=== PATIENT | male | born 1955 ===

== ENCOUNTER 2018-06-03 07:50 | Day surgery (SDC) | payer BC ==
[~2018-06-03 07:50] MED LIST: Acetaminophen TAB* 325 MG PO PRN; Buffered Lidocaine 0.9% SYRIN* 5 ML/SYR SYRINGE INTRADERM ONE
[2018-06-03] MEDS ORDERED: Midazolam* 1 MG/ML 2 ML VIAL (2 MG) ONE (09:25)
[2018-06-03] MEDS ORDERED: fentaNYL* 50 MCG/ML 2 ML VIAL (100 MCG VIAL) ONE (09:25)
[2018-06-03 10:22] VITALS: BP 116/77
--- NOTE | 2018-06-03 11:06 | OP ---
DATE OF OPERATION/DATE OF DICTATION: 06/03/2018 - [facility] DATE OF : 1955. SURGEON: Dr. Deepak Avalos. FRONT END UI DEVELOPER: None. ANESTHESIA: Topical with intravenous sedation. PRE-OP DIAGNOSIS: Cataract, right eye. POST-OP DIAGNOSIS: Cataract, right eye. OPERATIVE PROCEDURE: Phacoemulsification and cataract extraction with posterior chamber intraocular lens implant, right eye. COMPLICATIONS: None. BLOOD LOSS: None. DESCRIPTION OF PROCEDURE: The patient was brought to the operating room and received a small amount of intravenous sedation. A drop of Tetracaine was placed in his right eye. He was prepped and draped in the usual sterile fashion for ophthalmic surgery and attention was directed to the right eye where a speculum was placed. A paracentesis was created at the 11 o'clock position and 0.1 cc of 1 percent preservative-free Lidocaine was injected into the anterior chamber followed by DisCoVisc. The eye was digitally stabilized while a 2.75 mm keratome was used to create a triplanar clear corneal incision at the 9 o'clock position. A continuous curvilinear capsulorrhexis was created with a cystotome and Utrata forceps. BSS on a cannula was used to hydrodissect the lens from the capsule. Phacoemulsification was performed in a divide-and- conquer technique to create four fragments which were removed. Residual cortical material was removed with irrigation and aspiration. DisCoVisc was used to inflate the capsular bag and an AUOOTO 21.0 diopter lens was folded and inserted into the capsular bag. DisCoVisc was removed using irrigation and aspiration. BSS on a cannula was used to hydrate the corneal stroma and seal the wound. At the end of the case the pupil was round and the lens was centered. The eye was of normal pressure and the wound was water tight. The speculum was removed and topical Maxitrol ointment was placed on the surface of the eye. The eye was closed, patched and shielded and the patient was sent to the recovery room in stable condition with post operative instructions and follow-up appointment given. [id number] #: [id number] MTDD
[2018-06-03] MEDS ORDERED: Tropicamide 1% OPTH.SOL* BTL ONE (11:13)
[2018-06-03] MEDS ORDERED: Cyclopentolate 1% OPTH.SOL* 2 ML BTL ONE (11:13)
[2018-06-03] MEDS ORDERED: Neomycin/Polymy/Dex OPHTH.OIN* 3.5 GM ONE (11:13)
[2018-06-03] MEDS ORDERED: Tetracaine 0.5% OPTH.SOL 4 ML* 1 DROP BTL ONE (11:13)
[2018-06-03] MEDS ORDERED: Ketorolac 0.5% OPHTH (NF) 0.5 % 5 ML BTL ONE (11:13)
[2018-06-03] MEDS ORDERED: Phenylephrine 2.5% OPTH.SOL* 2 ML BTL ONE (11:13)
[2018-06-03] MEDS ORDERED: Lidocaine 1%* 5 ML VIAL ONE (11:13)
== END 2018-06-03 10:31 | disposition home or self-care (01) ==
LOC: OREAST 07:50
PROVIDERS: ATTEND Ophthalmology
DX: Z01.818 Encounter for other preprocedural examination (principal); H25.11 Age-related nuclear cataract, right eye
CPT/HCPCS: A9270-GY; J2250; J3010; V2632

== ENCOUNTER 2018-06-10 09:16 | Day surgery (SDC) | payer BC ==
[2018-06-10] MEDS ORDERED: fentaNYL* 50 MCG/ML 2 ML VIAL (100 MCG VIAL) ONE (09:48)
[2018-06-10] MEDS ORDERED: Midazolam* 1 MG/ML 2 ML VIAL (2 MG) ONE (09:48)
[2018-06-10 11:25] VITALS: BP 128/74
--- NOTE | 2018-06-10 11:53 | OP ---
DATE OF OPERATION/DATE OF DICTATION: 06/10/2018 - [facility] DATE OF : 1955. SURGEON: Dr. Deepak Avalos. WEB PAGE DEVELOPER: None. ANESTHESIA: Topical with intravenous sedation. PRE-OP DIAGNOSIS: Cataract, left eye. POST-OP DIAGNOSIS: Cataract, left eye. OPERATIVE PROCEDURE: Phacoemulsification and cataract extraction with posterior chamber intraocular lens implant, left eye. COMPLICATIONS: None. BLOOD LOSS: None. DESCRIPTION OF PROCEDURE: The patient was brought to the operating room and received a small amount of intravenous sedation. A drop of Tetracaine was placed in his left eye. He was prepped and draped in the usual sterile fashion for ophthalmic surgery and attention was directed to the left eye where a speculum was placed. A paracentesis was created at the 5 o'clock position and 0.1 cc of 1 percent preservative-free Lidocaine was injected into the anterior chamber followed by DisCoVisc. The eye was digitally stabilized while a 2.75 mm keratome was used to create a triplanar clear corneal incision at the 3 o' clock position. A continuous curvilinear capsulorrhexis was created with a cystotome and Utrata forceps. BSS on a cannula was used to hydrodissect the lens from the capsule. Phacoemulsification was performed in a divide-and- conquer technique to create four fragments which were removed. Residual cortical material was removed with irrigation and aspiration. DisCoVisc was used to inflate the capsular bag and an AUOOTO 21.0 diopter lens was folded and inserted into the capsular bag. DisCoVisc was removed using irrigation and aspiration. BSS on a cannula was used to hydrate the corneal stroma and seal the wound. At the end of the case the pupil was round and the lens was centered. The eye was of normal pressure and the wound was water tight. The speculum was removed and topical Maxitrol ointment was placed on the surface of the eye. The eye was closed, patched and shielded and the patient was sent to the recovery room in stable condition with post operative instructions and follow-up appointment given. [id number] #: [id number] MTDD
[2018-06-10] MEDS ORDERED: Cyclopentolate 1% OPTH.SOL* 2 ML BTL ONE (15:02)
[2018-06-10] MEDS ORDERED: Ketorolac 0.5% OPHTH (NF) 0.5 % 5 ML BTL ONE (15:02)
[2018-06-10] MEDS ORDERED: Lidocaine 1%* 5 ML VIAL ONE (15:02)
[2018-06-10] MEDS ORDERED: Phenylephrine 2.5% OPTH.SOL* 2 ML BTL ONE (15:02)
[2018-06-10] MEDS ORDERED: Tropicamide 1% OPTH.SOL* BTL ONE (15:02)
[2018-06-10] MEDS ORDERED: Tetracaine 0.5% OPTH.SOL 4 ML* 1 DROP BTL ONE (15:02)
[2018-06-10] MEDS ORDERED: Neomycin/Polymy/Dex OPHTH.OIN* 3.5 GM ONE (15:02)
== END 2018-06-10 11:25 | disposition home or self-care (01) ==
LOC: OREAST 09:16
PROVIDERS: ATTEND Ophthalmology
DX: H25.12 Age-related nuclear cataract, left eye (principal); B18.2 Chronic viral hepatitis C
CPT/HCPCS: A9270-GY; J2250; J3010; V2632

== ENCOUNTER 2018-11-21 08:47 | Emergency (ER) | payer BC ==
[2018-11-21 09:04] VITALS: BP 168/96
--- NOTE | 2018-11-21 09:19 | UC ---
Cardiac HPI - HPI Summary HPI Summary: This patient is a 63-year-old male who presents to the urgent care with a chief complaint of having left-sided chest pain. He reports that yesterday he was working in his yard when he developed a heavy lifting and today he developed this left-sided chest pain. The pain is dull constant nonradiating he reports that he is 0.5 out of 10. The pain is only when he touches the area of the left side of the chest. He denies any nausea vomiting, diaphoresis, dizziness or palpitations. Patient reports that she has a history of dyslipidemia, and hypertension. Denies any diabetes. She also reports that his father restively younger than his age. - History of Current Complaint Chief Complaint: UCChestPain Stated Complaint: SHOULDER PAIN Time Seen by Provider: 11/21/18 08:54 Hx Obtained From: Patient Onset/Duration: Gradual Onset Timing: Constant Initial Severity: Mild Current Severity: Mild Pain Intensity: 1 - Allergy/Home Medications Allergies/Adverse Reactions: Allergies Allergy/AdvReac Type Severity Reaction Status Date / Time No Known Allergies Allergy Verified 11/21/18 09:01 Home Medications: Home Medications Aspirin TAB* [Aspirin 325 MG TAB*] 650 mg PO Q6H PRN 11/21/18 [History Confirmed 11/21/18] PMH/Surg Hx/FS Hx/Imm Hx Endocrine History: Dyslipidemia Cardiovascular History: Hypertension - Surgical History Surgical History: Yes Surgery Procedure, Year, and Place: COLONOSCOPY-5 YEARS AGO, lens implants - Family History Known Family History: Positive: Hypertension, Other - [place] - Social History Alcohol Use: Occasionally Substance Use Type: None Smoking Status (MU): Never Smoked Tobacco Have You Smoked in the Last Year: No Review of Systems All Other Systems Reviewed And Are Negative: Yes Constitutional: Positive: Negative Skin: Positive: Negative Eyes: Positive: Negative ENT: Positive: Negative Respiratory: Positive: Negative Cardiovascular: Positive: Negative Gastrointestinal: Positive: Negative Genitourinary: Positive: Negative Motor: Positive: Negative Neurovascular: Positive: Negative Musculoskeletal: Positive: Other: - chest pain Neurological: Positive: Negative Psychological: Positive: Negative Is Patient Immunocompromised?: No Physical Exam - Summary Physical Exam Summary: VITAL SIGNS: Reviewed. GENERAL: Patient is a well developed and nourished male who is sitting comfortable in the stretcher. Patient is not in any acute respiratory distress. HEAD AND FACE: Normocephalic and atraumatic. EYES: PERRLA, EOMI x 2, EARS: Hearing grossly intact. MOUTH: Oropharynx within normal limits. NECK: Supple, trachea is midline, no adenopathy, no JVD, no carotid bruit, no c- spine tenderness, neck with full ROM. CHEST: Symmetric, no tenderness at palpation LUNGS: CTA B/L. No wheezing or crackles. CVS: RRR, S1 and S2 present, no murmurs or gallops appreciated. ABDOMEN: Soft, NT, No distention. Normal BS. EXTREMITIES: FROM in all major joints, no edema, no cyanosis or clubbing. NEURO: Alert and oriented x 3. No acute neurological deficits. Speech is normal and follows commands. SKIN: Dry and warm Triage Information Reviewed: Yes Appearance: Well-Appearing, No Pain Distress, Well-Nourished Vital Signs: Initial Vital Signs Temp 98.7 F 11/21/18 08:54 Pulse 79 11/21/18 08:54 Resp 16 11/21/18 08:54 BP 168/96 11/21/18 08:54 Pulse Ox 100 11/21/18 08:54 Diagnostics - EKG Cardiac Rate: NL ST Segment: Normal Summary of EKG Findings: NSR at 72 BPM w/o ST elevations - Assessment/Plan Course Of Treatment: In the urgent care the EKG shows a sinus rhythm at [address] elevations. Has a Q-wave in 2, 3, and aVF. No old EKG for comparison. In the physical exam the patient has a reproducible chest pain on he wonders packed of the left side of the chest. Chest x-ray impression: No acute pathology. In the urgent care course the patient was given Toradol for the pain. I believe that the patient has a muscular skeletal pain and not on acute coronary syndrome. The heart score is equal to 1 therefore no suspicion for acute coronary syndrome. However the patient was given instructions to return to the urgent care or go to the emergency room he develops more pain, shortness of breath, nausea vomiting, diaphoresis or any other symptom. The patient understands and agrees. - Differential Diagnoses - Chest Pain Differential Diagnosis/HQI/PQRI: Acute [place] - Clinical Impression Provider Diagnosis: Atypical chest pain Discharge - Sign-Out/Discharge Documenting (check all that apply): Patient Departure All imaging exams completed and their final reports reviewed: Yes - Discharge Plan Condition: Stable Disposition: HOME Patient Education Materials: Chest Wall Pain (ED) Referrals: No Primary Care Phys,NOPCP [Primary Care Provider] - [facility] [Outside] Additional Instructions: F/U with PCP - Billing Disposition and Condition Condition: STABLE Disposition: Home
[2018-11-21] MEDS ORDERED: Ketorolac INJ* 30 MG/ML 1 ML VIAL IM ONE (09:40)
== END 2018-11-21 09:53 | disposition home or self-care (01) ==
LOC: UCEAST 08:47
DX: R07.89 Other chest pain (principal); Z79.82 Long term (current) use of aspirin
CPT/HCPCS: 71046; 93005; 99211; G0463; J1885